=== PATIENT | female | born 1950 | race Two or more races ===

== ENCOUNTER → 2018-11-14 | Day surgery (SDC) | payer MEDICARE, OTHER ==
[2018-11-10 16:32] LABS: INR 0.85 (0.9-1.15); Partial Thromboplastin Time 24.1 sec (23.78-33.04); Prothrombin Time 9.2 sec (9.27-12.13)
[2018-11-10 16:34] LABS: Basophils # (auto) 0.1 uL; Basophils % (auto) 1.1 % (0.0-2.0); Eosinophils # (auto) 0.2 uL; Eosinophils % (auto) 2.1 % (0.0-7.0); Hematocrit 46.3 % (36.0-46.0); Hemoglobin 15.5 g/dL (12.2-16.2); Lymphocytes # (auto) 2.8 uL; Lymphocytes % (auto) 29.2 % (10.0-50.0); Mean Corpuscular Hemoglobin 29.1 pg (28.0-32.0); Mean Corpuscular Hgb Conc. 33.4 g/dL (32.0-36.0); Mean Corpuscular Volume 87.2 fL (80.0-100.0); Monocytes # (auto) 0.6 uL; Monocytes % (auto) 6.6 % (0.0-12.0); Neutrophils # (auto) 5.8 uL; Platelet Count (auto) 257 10^3/uL (140-450); Red Blood Cells 5.31 10^6/uL (4.0-5.20); Red Cell Distribution Width 13.7 % (11.8-14.3); White Blood Cell 9.5 10^3/uL (4.4-10.8)
[2018-11-10 16:37] LABS: Calcium 9.4 mg/dL (8.5-10.1); Potassium 3.8 mmol/L (3.5-5.1)
[2018-11-10 16:41] LABS: BUN/Creatinine Ratio 17.1; Bilirubin, Total 0.3 mg/dL (0.2-1.0); Total Protein 7.2 g/dL (6.4-8.2)
[2018-11-11 11:38] LABS: Urine Bacteria FEW /hpf (None Seen); Urine Blood Negative /uL (Negative); Urine Specific Gravity 1.016 (1.001-1.035); Urine WBC 10 /hpf (0 - 5)
[~2018-11-14] VITALS: Ht 170.2 cm; Wt 86.2 kg
[~2018-11-14] MED LIST: ACCU-CHEK COMFORT CURVE STRIP VI ONE; AMLO10CA42 PO; ASPI81TA27 PO; DULA0.5I SC; ESMOLOL HCL 10 ML IV ONE; EZET10TA6 PO; GLYCOPYRROLATE 0.2 MG/ML 1ML VIAL ONE; HYDROmorphone HCL 2 MG/ML VL IV PRN; LIDOCAINE 1% (LOCAL ANESTH.) PF 5ml SDV ONE; METO1TAB9 PO; METOCLOPRAMIDE HCL 5MG/ml INJ 2ml VIAL ONE; MIDAZOLAM HCL 1MG/1ML-2 ML VIAL ONE; MONT10TA34 PO; NALOXONE HCL 0.4 MG/ML VIAL IV PRN; OMEP20TA PO; ONDANSETRON HCL 4 MG/2 ML VIAL IV ONE; PROPOFOL 10 MG/ML 20 ML IV ONE; SUCCINYLCHOLINE CHLORIDE 20 MG/ML 10ML VIAL IV ONE; TIOTCAP IN; VENL75TA PO; [UNRECOGNIZED DRUG - CODE] PO; [UNRECOGNIZED DRUG - CODE] PO; diphenhdrAMINE HCL 50 MG/1 ML VL ONE
[2018-11-14 12:08] VITALS: BP 152/88
== END | disposition home or self-care (01) ==
LOC: SUR 08:26
PROVIDERS: ATTEND Internal Medicine Gastroenterology
DX: D12.3 Benign neoplasm of transverse colon (principal); D12.4 Benign neoplasm of descending colon; D12.5 Benign neoplasm of sigmoid colon; D12.7 Benign neoplasm of rectosigmoid junction; K31.7 Polyp of stomach and duodenum; K63.5 Polyp of colon; K29.60 Other gastritis without bleeding; K64.4 Residual hemorrhoidal skin tags; K64.8 Other hemorrhoids; K57.30 Diverticulosis of large intestine without perforation or abscess without bleeding; K58.9 Irritable bowel syndrome, unspecified; E66.9 Obesity, unspecified; E11.9 Type 2 diabetes mellitus without complications; J44.9 Chronic obstructive pulmonary disease, unspecified; G47.33 Obstructive sleep apnea (adult) (pediatric); Z86.73 Personal history of transient ischemic attack (TIA), and cerebral infarction without residual deficits; Z98.890 Other specified postprocedural states; Z68.29 Body mass index [BMI] 29.0-29.9, adult; Z79.82 Long term (current) use of aspirin; Z79.84 Long term (current) use of oral hypoglycemic drugs; Z79.899 Other long term (current) drug therapy; Z88.8 Allergy status to other drugs, medicaments and biological substances; Z88.5 Allergy status to narcotic agent
CPT/HCPCS: 36415; 43239; 45380; 45385; 80053; 81001; 82962; 85025; 85610; 85730; 88305; 88342; A6257; J1200; J2250; J2704; J2765; J0330

== ENCOUNTER → 2018-12-20 | Outpatient (CLI) | payer MEDICARE, OTHER ==
[~2018-12-20] MED LIST changes: -ACCU-CHEK COMFORT CURVE STRIP VI ONE; -ESMOLOL HCL 10 ML IV ONE; -GLYCOPYRROLATE 0.2 MG/ML 1ML VIAL ONE; -HYDROmorphone HCL 2 MG/ML VL IV PRN; -LIDOCAINE 1% (LOCAL ANESTH.) PF 5ml SDV ONE; -METOCLOPRAMIDE HCL 5MG/ml INJ 2ml VIAL ONE; -MIDAZOLAM HCL 1MG/1ML-2 ML VIAL ONE; -NALOXONE HCL 0.4 MG/ML VIAL IV PRN; -ONDANSETRON HCL 4 MG/2 ML VIAL IV ONE; -PROPOFOL 10 MG/ML 20 ML IV ONE; -SUCCINYLCHOLINE CHLORIDE 20 MG/ML 10ML VIAL IV ONE; -diphenhdrAMINE HCL 50 MG/1 ML VL ONE
== END | disposition home or self-care (01) ==
LOC: XY 08:13
PROVIDERS: ATTEND Internal Medicine Gastroenterology
DX: K58.9 Irritable bowel syndrome, unspecified (principal); K92.1 Melena; K55.9 Vascular disorder of intestine, unspecified
CPT/HCPCS: 78226; A9537

== ENCOUNTER → 2019-01-05 | Outpatient (CLI) | payer MEDICARE, OTHER | END | disposition home or self-care (01) | LOC: LAB 14:48 | PROVIDERS: ATTEND Internal Medicine Gastroenterology | DX: K92.1 Melena (principal); K58.9 Irritable bowel syndrome, unspecified; R12 Heartburn | CPT/HCPCS: 82705; 87045; 87493; 87899 ==

== ENCOUNTER → 2019-01-09 | Outpatient (CLI) | payer MEDICARE, OTHER ==
[~2019-01-09] MED LIST changes: +ALBUTEROL SULF 2.5 MG/0.5ML(0.5%) NEB SOLN ONE
== END | disposition home or self-care (01) ==
LOC: RT 10:40
PROVIDERS: ATTEND Internal Medicine Pulmonary Disease
DX: J44.9 Chronic obstructive pulmonary disease, unspecified (principal)
CPT/HCPCS: 94060; 94618; J7611